=== PATIENT | male | born 1955 | race Caucasian/White ===

== ENCOUNTER 2017-03-03 17:28 | Emergency (ER) | payer OTHER ==
[~2017-03-03] VITALS: Ht 177.8 cm; Wt 83.9 kg
[~2017-03-03 17:28] MED LIST: MEDROL DOSEPAK1 PAC PO; PROAIR HFA0.09 MG/Ac INH; ZITHROMAX Z-PA250 MG PO
--- NOTE | 2017-03-03 18:13 | ED GI/GU/ABDOMINAL COMPLAINT ---
History of Present Illness General Chief Complaint: Abdominal Pain/Flank Pain Stated Complaint: ABD PAIN Source: patient Exam Limitations: no limitations Vital Signs & Intake/Output Vital Signs & Intake/Output Vital Signs Date Time Temp Pulse Resp B/P Pulse O2 O2 Flow FiO2 Ox Delivery Rate 03/03 2058 68 18 141/88 96 Room Air 03/03 1754 98.7 74 18 133/79 98 Room Air ED Intake and Output 03/04 0000 03/03 1200 Intake Total Output Total Balance Patient 185 lb Weight Allergies Coded Allergies: NO KNOWN ALLERGIES (12/17/15) Reconcile Medications Cyanocobalamin (Vitamin B-12) (Unknown Strength) TABLET (Unknown Dose) PO DAILY SUPPLEMENT (Reported) Dicyclomine Hydrochloride (Bentyl) 10 MG CAPSULE 1 CAP PO TID PAIN Ondansetron (Zofran Odt) 4 MG TAB.RAPDIS 1 TAB SL TID NAUSEA Paroxetine HCl 25 MG TAB.ER.24H 1 TAB PO QAM MENTAL HEALTH (Reported) Quetiapine Fumarate 25 MG TABLET 1 TAB PO QHS MENTAL HEALTH (Reported) Vitamin B Complex 1 EACH CAPSULE 1 CAP PO DAILY SUPPLEMENT (Reported) Triage Note: PT TO TRIAGE WITH C/O CONSTANT MIDDLE ABD PAIN 6/10 x3DAYS, INTERMITTENT NAUSEA, PT DENIES V/D, LAST BM 4DAYS AGO. HX OF DIVERTICULITIS. VSS. Triage Nurses Notes Reviewed? yes Onset: Abrupt Duration: day(s): (3), constant, getting worse Timing: recent history Quality/Severity: moderate, sharpness, severe Radiation: no radiation No Modifying Factors: none HPI: 61-year-old male comes into emergency room for further evaluation of left mid upper abdominal pain for the past 3 days. Associated nausea. Decrease in bowel movements. Denies any fever chills vomiting. History of diverticulitis. Denies any previous abdominal surgeries. Denies any urinary symptoms. Denies any other associated symptoms. (MONICA SCHAEFER) Past History Travel History Traveled to [place] past 21 day No Medical History Any Pertinent Medical History? see below for history Respiratory: pneumonia Gastrointestinal: diverticulitis Psychiatric: depression Surgical History Surgical History: RIGHT KNEE ARTHROSCOPY Psychosocial History What is your primary language Czech Tobacco Use: Quit >30 days ago Family History Hx Contributory? No (MONICA SCHAEFER) Review of Systems Review of Systems Constitutional: Reports: no symptoms. EENTM: Reports: no symptoms. Respiratory: Reports: no symptoms. Cardiovascular: Reports: no symptoms. GI: Reports: see HPI. Genitourinary: Reports: see HPI. Musculoskeletal: Reports: no symptoms. Skin: Reports: no symptoms. Neurological/Psychological: Reports: no symptoms. Hematologic/Endocrine: Reports: no symptoms. Immunologic/Allergic: Reports: no symptoms. All Other Systems: Reviewed and Negative (MONICA SCHAEFER) Physical Exam Physical Exam General Appearance: well developed/nourished, no apparent distress, alert Head: atraumatic, normal appearance Eyes: Bilateral: normal appearance. Ears, Nose, Throat, Mouth: hearing grossly normal, moist mucous membrane Neck: normal inspection Respiratory: normal breath sounds, no respiratory distress Cardiovascular: regular rate/rhythm Gastrointestinal: soft, tenderness Back: normal inspection Extremities: normal range of motion Neurologic/Psych: awake, alert, oriented x 3, normal gait, normal mood/affect Skin: intact, normal color Core Measures ACS in differential dx? No Severe Sepsis Present: No Septic Shock Present: No (MONICA SCHAEFER) Progress Differential Diagnosis: appendicitis, biliary colic, bowel obstruction, colon cancer, cholecystitis, diverticulitis, gastritis, hepatitis, hernia, ischemic bowel, inflamm bowel dis, pancreatitis, prostatitis, peptic ulcer, PUD/GERD, perforated viscous, pyelonephritis, SBO, ureterolithiasis, urinary retention, urethritis, UTI/pyelo Plan of Care: Orders Procedure Date/time Status URINALYSIS 03/03 1811 Complete LIPASE 03/03 1811 Complete COMPREHENSIVE METABOLIC PANEL 03/03 1811 Complete CBC WITHOUT DIFFERENTIAL 03/03 1811 Complete Laboratory Tests 03/03/172009: Urine Color YEL, Urine Clarity CLEAR, Urine pH 6.5, Ur Specific [place] 1.015, Urine Protein NEG, Urine Ketones NEG, Urine Nitrite NEG, Urine Bilirubin NEG, Urine Urobilinogen 0.2, Ur Leukocyte Esterase NEG, Ur Microscopic EXAM NOT REQUIRED, Urine Hemoglobin NEG, Urine Glucose NEG 03/03/171821: Anion Gap 11, Estimated GFR > 60, BUN/Creatinine Ratio 15.0, Glucose 94, Calcium 10.3 H, Total Bilirubin 0.5, AST 30, ALT 41, Alkaline Phosphatase 74, Total Protein 7.0, Albumin 3.7, Globulin 3.3, Albumin/Globulin Ratio 1.1, Lipase 328 H, CBC w Diff NO MAN DIFF REQ, RBC 4.49 L, MCV 95.8 H, MCH 31.9 H, RDW 13.8, MPV 8.0, Gran % 66.8, Lymphocytes % 21.3, Monocytes % 8.0, Eosinophils % 3.1, Basophils % 0.8, Absolute Granulocytes 7.1 H, Absolute Lymphocytes 2.3, Absolute Monocytes 0.9 H, Absolute Eosinophils 0.3, Absolute Basophils 0.1, PUBS MCHC 33.3 Diagnostic Imaging: Viewed by Me: CT Scan. Discussed w/RAD: CT Scan. Radiology Impression: EXAM TYPE: CAT - CT ABD & PELVIS W IV CONTRAST EXAMINATION : CT ABDOMEN AND PELVIS WITH CONTRAST CLINICAL INFORMATION: Mid abdominal pain. Reported history of diverticulitis. COMPARISON: No relevant prior studies are available for comparison. TECHNIQUE: Multidetector volumetric imaging was performed of the abdomen and pelvis before and after the IV administration of 94 mL of Optiray 320 intravenous contrast. Sagittal and coronal reformatted images were obtained on the technologist's workstation. DLP: 486.36 mGy-cm. FINDINGS: LUNG BASES: The visualized lung bases are unremarkable. LIVER, GALLBLADDER, AND BILIARY TREE: The liver is normal in size, shape, and attenuation. No focal hepatic lesion or biliary ductal dilatation is present. The gallbladder is unremarkable with no evidence of radiopaque gallstones, gallbladder wall thickening, or obvious pericholecystic inflammatory changes. PANCREAS: Unremarkable. SPLEEN: Unremarkable. ADRENAL GLANDS: Unremarkable. KIDNEYS AND URETERS: The kidneys are normal in size, shape, and attenuation. No hydronephrosis, hydroureter, or calculi seen. No perinephric stranding. BLADDER: Unremarkable. GASTROINTESTINAL TRACT: No intra-abdominal free air or free fluid. No large or small bowel obstruction. Extensive colonic diverticula without adjacent inflammatory change to suggest acute diverticulitis. The appendix is normal. ABDOMINAL WALL: No significant hernia is appreciated. LYMPH NODES: Normal. VASCULAR: Contrast opacifies the abdominal aorta and its branch vessels. There are scattered atherosclerotic calcifications. The IVC is unremarkable. PELVIC VISCERA: Calcifications are noted within the prostate. OSSEOUS STRUCTURES : Mild degenerative changes within the lower lumbar spine, most significant at L4-L5. No lytic or blastic osseous lesions. IMPRESSION: 1. Diverticulosis without adjacent inflammatory change to suggest acute diverticulitis. No large or small bowel obstruction. 2. Normal appendix. 3. No hydronephrosis or nephrolithiasis. DICTATED BY: ALPHONSO RANGEL MD DATE/TIME DICTATED:03/03/172006 TERRAZZO MECHANIC:QUYNH DATE/TIME TRANSCRIBED:03/03/172006 Initial ED EKG: none (JORGE CHAUDHARI,MONICA) Departure Departure Disposition: HOME OR SELF CARE Condition: Stable Clinical Impression Primary Impression: Abdominal pain Referrals: KEYANNA SMITH,JAGDISH Richmond (PCP/Family) Additional Instructions: Follow-up with your primary care doctor. 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 Drink plenty of fluids. Return if any other concerns worsening symptoms. Please go overall results of today's visit with her primary care doctor. roustabout supervisor Metamucil to take daily. Take Bentyl and Zofran ODT as prescribed. Please go over all results of today's visit with your primary care doctor. Contact your primary care doctor to let them know you were here in the emergency room. There may be nonspecific findings which may not be related to your visit today here in the emergency room but may require further evaluation and chronic monitoring by your primary care doctor. If you had a laceration today the chance of foreign body always remains. You should follow-up with your primary care doctor for recheck in 3-5 days for a wound check. If you had an x-ray done there is a chance that a fracture could have been missed on initial read and you should follow-up with your primary care doctor for repeat x-rays if symptoms persist. If your blood pressure was elevated here in the emergency room please have rechecked by her primary care doctor within the next 48 hours by your primary care doctor. If you were prescribed a narcotic here in the emergency room or any type of controlled substances you're not allowed to drive while taking this medication or operate any type of heavy machinery. Narcotics can make you feel lightheaded dizziness nausea and can cause constipation. You may need to order picker a stool softener. Thank you for choosing [facility] emergency room. Please return to the emergency room immediately if you have any other concerns worsening of symptoms. Departure Forms: Customer Survey General Discharge Information Prescriptions: Current Visit Scripts Ondansetron (Zofran Odt) 1 TAB SL TID #10 TAB Dicyclomine Hydrochloride (Bentyl) 1 CAP PO TID #20 CAP Comments 03/03/2017 9:17:22 PM Patient clinically looks well. Nontoxic-appearing. In no apparent distress. No acute findings on CT scan. Return if any other concerns worsening symptoms. Go over results with GI doctor. Return if any other concerns. (JORGE CHAUDHARI,MONICA) PA/FORESTRY FIRE AIDE Co-Sign Statement Statement: ED Attending supervision documentation- [] I saw and evaluated the patient. I have also reviewed all the pertinent lab results and diagnostic results. I agree with the findings and the plan of care as documented in the PA's/FORESTRY FIRE AIDE's documentation. [x] I have reviewed the ED Record and agree with the PA's/FORESTRY FIRE AIDE's documentation. [] Additions or exceptions (if any) to the PAs/FORESTRY FIRE AIDE's note and plan are summarized below: [] (JASON SMITH,NATHAN Cates)
[2017-03-03 18:29] LABS: ABSOLUTE BASOPHIL COUNT 0.1 /CUMM (0.0-0.2); ABSOLUTE EOSINOPHIL COUNT 0.3 /CUMM (0.0-0.7); ABSOLUTE GRANULOCYTE CT 7.1 /CUMM (1.4-6.5); ABSOLUTE LYMPH COUNT 2.3 /CUMM (1.2-3.4); ABSOLUTE MONOCYTE COUNT 0.9 /CUMM (0.10-0.60); BASOPHIL % 0.8 % (0.0-2.0); EOSINOPHIL % 3.1 % (0-5); GRANULOCYTE % 66.8 % (42.2-75.2); MEAN CORPUSCULAR HGB 31.9 PG (27.0-31.0); MEAN CORPUSCULAR HGB CONC 33.3 G/DL (33.0-37.0); MEAN CORPUSCULAR VOLUME 95.8 FL (80.0-94.0); PLATELET COUNT 208 /CUMM (130-400); RBC DISTRIBUTION WIDTH 13.8 % (11.5-14.5); RED BLOOD CELL CT 4.49 /CUMM (4.70-6.10); WHITE BLOOD CELL COUNT 10.7 /CUMM (4.8-10.8)
[2017-03-03] MEDS ORDERED: PAROXETINE HCL25 MG PO (18:33)
[2017-03-03] MEDS ORDERED: QUETIAPINE FUMA25 M1 PO (18:34)
[2017-03-03] MEDS ORDERED: VITAMIN B COMP1 EACH PO (18:34)
[2017-03-03] MEDS ORDERED: VITAMIN B-121000 MC3 PO (18:34)
--- NOTE | 2017-03-03 20:20 | CT SCAN REPORT ---
EXAMINATION: CT ABDOMEN AND PELVIS WITH CONTRAST CLINICAL INFORMATION: Mid abdominal pain. Reported history of diverticulitis. COMPARISON: No relevant prior studies are available for comparison. TECHNIQUE: Multidetector volumetric imaging was performed of the abdomen and pelvis before and after the IV administration of 94 mL of Optiray 320 intravenous contrast. Sagittal and coronal reformatted images were obtained on the technologist's workstation. DLP: 486.36 mGy-cm. FINDINGS: LUNG BASES: The visualized lung bases are unremarkable. LIVER, GALLBLADDER, AND BILIARY TREE: The liver is normal in size, shape, and attenuation. No focal hepatic lesion or biliary ductal dilatation is present. The gallbladder is unremarkable with no evidence of radiopaque gallstones, gallbladder wall thickening, or obvious pericholecystic inflammatory changes. PANCREAS: Unremarkable. SPLEEN: Unremarkable. ADRENAL GLANDS: Unremarkable. KIDNEYS AND URETERS: The kidneys are normal in size, shape, and attenuation. No hydronephrosis, hydroureter, or calculi seen. No perinephric stranding. BLADDER: Unremarkable. GASTROINTESTINAL TRACT: No intra-abdominal free air or free fluid. No large or small bowel obstruction. Extensive colonic diverticula without adjacent inflammatory change to suggest acute diverticulitis. The appendix is normal. ABDOMINAL WALL: No significant hernia is appreciated. LYMPH NODES: Normal. VASCULAR: Contrast opacifies the abdominal aorta and its branch vessels. There are scattered atherosclerotic calcifications. The IVC is unremarkable. PELVIC VISCERA: Calcifications are noted within the prostate. OSSEOUS STRUCTURES: Mild degenerative changes within the lower lumbar spine, most significant at L4-L5. No lytic or blastic osseous lesions. IMPRESSION: 1. Diverticulosis without adjacent inflammatory change to suggest acute diverticulitis. No large or small bowel obstruction. 2. Normal appendix. 3. No hydronephrosis or nephrolithiasis.
[2017-03-03] MEDS ORDERED: ZOFRAN ODT4 M1 SL (20:48)
[2017-03-03] MEDS ORDERED: BENTYL10 M1 PO (20:48)
[2017-03-03 20:58] VITALS: BP 141/88
== END 2017-03-03 21:00 ==
LOC: ERH 17:28
PROVIDERS: Physician Assistant Medical
DX: R10.10 Upper abdominal pain, unspecified (principal)
CPT/HCPCS: 74177; 81003